=== PATIENT | male | born 1965 | race African-American/Black ===

== ENCOUNTER 2019-06-09 17:27 | Emergency (ER) | payer MEDICAID ==
[~2019-06-09] VITALS: Ht 193 cm; Wt 128.7 kg
[2019-06-09] MEDS ORDERED: HYDR-2510 PO (17:42)
[2019-06-09] MEDS ORDERED: ASPI-1497 PO (17:42)
[2019-06-09] MEDS ORDERED: KETOROLAC 60MG/2ML VIAL IM ONE (21:00)
[2019-06-09 22:36] VITALS: BP 157/89
== END 2019-06-09 22:39 | disposition home or self-care (01) ==
LOC: ER 17:27
DX: M25.512 Pain in left shoulder (principal); M54.2 Cervicalgia; I10 Essential (primary) hypertension; Z79.82 Long term (current) use of aspirin; Z88.8 Allergy status to other drugs, medicaments and biological substances; V43.02XA Car driver injured in collision with other type car in nontraffic accident, initial encounter; Y93.89 Activity, other specified; Y92.488 Other paved roadways as the place of occurrence of the external cause
CPT/HCPCS: 72040; 96372; 99283; J1885